=== PATIENT | male | born 1995 | race Caucasian/White ===

== ENCOUNTER 2018-09-23 16:20 | Emergency (ER) | payer OTHER ==
[~2018-09-23] VITALS: Ht 177.8 cm; Wt 61.2 kg
[2018-09-23 16:25] VITALS: BP_SYST 97
--- NOTE | 2018-09-23 16:25 | NUR ---
Patient to ER bed h1 to gown for evaluation. Side rails up.
--- NOTE | 2018-09-23 16:30 | NUR ---
ER at bedside examining patient.
--- NOTE | 2018-09-23 16:31 | NUR ---
Pt bib [facility] for med clearance to process.
[2018-09-23 16:42] VITALS: BP_SYST 97
--- NOTE | 2018-09-23 16:42 | NUR ---
Patient given written and verbal discharge instructions and verbalizes understanding. ER MD discussed with patient the results and treatment provided. Patient in stable condition. ID arm band removed. no Rx of given. Patient educated on pain management and to follow up with PMD. Pain Scale 0. Opportunity for questions provided and answered. Medication side effect fact sheet provided.
== END 2018-09-23 16:42 ==
LOC: SED 16:20
DX: S80.211A Abrasion, right knee, initial encounter (principal); S50.312A Abrasion of left elbow, initial encounter; S30.810A Abrasion of lower back and pelvis, initial encounter; F10.129 Alcohol abuse with intoxication, unspecified; F17.210 Nicotine dependence, cigarettes, uncomplicated; V43.62XA Car passenger injured in collision with other type car in traffic accident, initial encounter; Y93.89 Activity, other specified; Y92.410 Unspecified street and highway as the place of occurrence of the external cause; Y99.8 Other external cause status
CPT/HCPCS: 99283